=== PATIENT | female | born 1970 | race Caucasian/White ===

== ENCOUNTER 2019-03-03 05:12 | Day surgery (SDC) | payer MEDICAID ==
[~2019-03-03] VITALS: Ht 152.4 cm; Wt 98.4 kg
[~2019-03-03 05:12] MED LIST: CALC600T12 PO; IBUP-1636 PO; IBUP-2029 PO; SIMV10TA6 PO; [UNRECOGNIZED DRUG - CODE] PO
[2019-03-03] MEDS ORDERED: FENTANYL CITRATE/PF 50MCG/ML 2ML VIAL IV PRN (06:30)
[2019-03-03] MEDS ORDERED: ONDANSETRON HCL 4MG/2ML INJ IV PRN (06:30)
[2019-03-03] MEDS ORDERED: MIDAZOLAM HCL 2 MG/2 ML VIAL ONE (06:36)
[2019-03-03] MEDS ORDERED: PROPOFOL 200MG/20ML VIAL IV ONE (06:36)
[2019-03-03] MEDS ORDERED: LIDOCAINE HCL/PF 1% 10 MG/ML 5ML VIAL ONE (06:37)
[2019-03-03] MEDS ORDERED: CEFAZOLIN SODIUM 1000MG/VIAL ONE (06:37)
[2019-03-03] MEDS ORDERED: BUPIVACAINE/EPINEPH/PF 0.25%/0.0005 10ML ONE (06:46)
[2019-03-03] MEDS ORDERED: MORPHINE SULFATE/PF 1MG/ML 10ML AMP ONE (06:46)
[2019-03-03] MEDS: LACTATED RINGERS 1,000 ML IV SCH ×2 (07:13→09:43)
[2019-03-03] MEDS ORDERED: DEXAMETHASONE 4MG/ML 1ML VIAL ONE (07:23)
[2019-03-03] MEDS ORDERED: SODIUM CHLORIDE 0.9% 10ML VIAL ONE (07:26)
[2019-03-03] MEDS ORDERED: ONDANSETRON HCL 4MG/2ML INJ ONE (08:05)
[2019-03-03] MEDS ORDERED: METOCLOPRAMIDE HCL 10MG/2ML VIAL ONE (08:05)
[2019-03-03] MEDS ORDERED: KETOROLAC 30MG/ML VIAL ONE (08:16)
[2019-03-03] MEDS ORDERED: HYDROCODONE/ACETAMINOPHEN 10/325MG TABLET PO PRN (09:15)
[2019-03-03] MEDS: HYDROMORPHONE HCL/PF 2MG/ML CPJ IV PRN ×2 (09:37→09:53)
[2019-03-03 09:53] VITALS: BP 139/83
== END 2019-03-03 11:10 | disposition home or self-care (01) ==
LOC: OR 05:12
PROVIDERS: ATTEND Orthopaedic Surgery
DX: S83.241A Other tear of medial meniscus, current injury, right knee, initial encounter (principal); M94.261 Chondromalacia, right knee; M65.861 Other synovitis and tenosynovitis, right lower leg; Y33.XXXA Other specified events, undetermined intent, initial encounter; Y93.89 Activity, other specified; Y92.89 Other specified places as the place of occurrence of the external cause; Y99.9 Unspecified external cause status; E66.3 Overweight; E78.5 Hyperlipidemia, unspecified; J45.909 Unspecified asthma, uncomplicated; Z98.51 Tubal ligation status
CPT/HCPCS: 29876; 29881; 88304; 88311; 97116; 97161; J0171; J0690; J1100; J1170; J1885; J2250; J2274; J2405; J2704; J2765; J3010; J3490